=== PATIENT | female | born 2000 | race Caucasian/White ===

== ENCOUNTER 2021-09-01 22:29 | Emergency (ER) | payer OTHER, SELFPAY ==
--- NOTE | ~2021-09-01 | CT_ITS ---
EXAMINATION: CT abdomen pelvis w con DATE: 09/02/2021 00:36 INDICATION: Nausea. Low abdominal pain. TECHNIQUE: Computed tomography (CT) of the abdomen and pelvis was performed with 100 mL Omnipaque 350 intravenous contrast. Automated exposure control and iterative reconstruction technique were employe d. The dose-length product was 967.43 mGy-cm. COMPARISON: None. FINDINGS: The visualized portions of the lung bases demonstrate minimal atelectasis. No pleural effus ion. The heart size is normal. No pericardial effusion. The liver, gallbladder, spleen, pancreas, adr enal glands, and kidneys are normal. There are no dilated loops of bowel. The appendix is normal. The re are no pathologically enlarged lymph nodes. There is no free intraperitoneal fluid. The bones are unremarkable. IMPRESSION: 1. No etiology for the patient's symptoms. Reviewed, dictated and finalized at location A.
[2021-09-01 22:33] VITALS: BP 137/71; PULSE 81; RESP 18; TEMP 36.6; O2SAT 100
[2021-09-01 23:11] VITALS: BP 127/60; PULSE 77; RESP 16; O2SAT 100
[2021-09-01 23:22] LABS: Glucose Point of Care 132 mg/dl (65-105)
--- NOTE | 2021-09-01 23:48 | ED.FEMALEGU ---
HPI - Female Genitourinary General Chief complaint: STAFF RADIOGRAPHER <Gilda Saini PA-C - Last Filed: 09/02/21 02:03> Stated complaint: Dropping sensation in abdomen <Gilda Saini PA-C - Last Filed: 09/02/21 02:03> Time Seen by Provider: 09/01/21 22:56 <Gilda Saini PA-C - Last Filed: 09/02/21 02:03> Source: patient <ASA Dale Last Filed: 09/02/21 02:03> Mode of arrival: ambulatory <Gilda Saini PA-C - Last Filed: 09/02/21 02:03> Limitations: no limitations <ASA Dale Last Filed: 09/02/21 02:03> History of Present Illness HPI Narrative: This is a 21 year old female that presents to the ER for abnormal lower abdominal discomfort. Started tonight. Reports feeling like something has dropped in her pelvis. She was concerned she may be having problems with prolapse. No known history of this. She has had one previous vaginal . This was about 5 months ago. Reports nausea. Denies fever, vomiting or diarrhea. <Gilda Saini PA-C - Last Filed: 09/02/21 02:03> Related Data Allergies/Adverse reactions: Allergies Allergy/AdvReac Type Severity Reaction Status Date / Time No Known Allergies Allergy Verified 09/01/21 23:13 <Gilda Saini PA-C - Last Filed: 09/02/21 02:03> Review of Systems Review of Systems: CONSTITUTIONAL: Denies fever GASTROINTESTINAL: Reports abdominal pain, nausea. Denies vomiting, or diarrhea. GENITOURINARY: Denies dysuria <Gilda Saini PA-C - Last Filed: 09/02/21 02:03> All systems reviewed & are unremarkable except as noted in HPI and below <Gilda Saini PA-C - Last Filed: 09/02/21 02:03> [facility] Past Medical History Medical History: Medical History (Updated 09/02/21 @ 01:59 by Gilda Saini PA-C) No active medical problems <Gilda Saini PA-C - Last Filed: 09/02/21 02:03> Social History Social History: Social History (Updated 09/02/21 @ 01:05 by Gilda Saini PA-C) Substance use: never <Gilda Saini PA-C - Last Filed: 09/02/21 02:03> Exam Narrative: GENERAL: Well-appearing, well-nourished, and in no acute distress. HEAD: Normocephalic, atraumatic. EYES: EOMI. CHEST: Clear to auscultation. No respiratory distress. No wheezes rales or rhonchi HEART: Regular rate and rhythm. No murmur heard. Normal peripheral pulses. ABDOMEN: Soft, nontender, nondistended, normal active bowel sounds. EXTREMITIES: Normal range of motion. No edema. SKIN: Warm, dry, no rash. NEURO: No focal deficits. Alert and oriented x3. PSYCH: Normal mood and affect PELVIC: Normal external genitalia. Normal appearing cervix. No abnormal discharge or lesions noted. No evidence of prolapse <Gilda Saini PA-C - Last Filed: 09/02/21 02:03> Course Vital Signs Vital signs: Vital Signs Temperature 97.9 F 09/01/21 22:33 Pulse Rate 81 09/01/21 22:33 Respiratory Rate 18 09/01/21 22:33 Blood Pressure 137/71 09/01/21 22:33 Pulse Oximetry 100 09/01/21 22:33 Temperature 97.9 F 09/01/21 22:33 Pulse Rate 100 09/02/21 02:15 Respiratory Rate 14 09/02/21 02:15 Blood Pressure 125/68 09/02/21 02:15 Pulse Oximetry 100 09/02/21 02:15 <Gilda Saini PA-C - Last Filed: 09/02/21 02:03> MDM - Female Genitourinary MDM Narrative Medical decision making narrative: Patient presents to the emergency department for lower abdominal discomfort and nausea. She is afebrile and nontoxic-appearing. Her vitals are stable. CBC and metabolic panel without concerning findings. UA without evidence of infection. Bedside test is negative. CT scan of the abdomen and pelvis shows nonspecific inflammation of the small bowel and colon. Patient and family updated on case findings. She was hydrated and given antiemetics with relief. Will be started on oral antibiotics and instructed to follow-up with primary doctor. She was given warnings to return to the ER <Gilda Saini P
[2021-09-02 00:13] LABS: Alanine Aminotransferase 24 U/L (4-35); Albumin Level 4.3 g/dL (3.5-5.1); Alkaline Phosphatase 84 U/L (38-126); Anion Gap 8 mmol/L (8-16); Aspartate Amino Transferase 30 U/L (14-36); Bilirubin,Total 0.4 mg/dL (0.2-1.3); Blood Urea Nitrogen 17 mg/dL (7-17); Carbon Dioxide 26 mmol/L (22-30); Chloride 107 mmol/L (98-107); Estimated CRCL calculation 119 ml/min; Estimated Glomerular Filt Rate > 60; Glucose 128 mg/dL (65-110); Lipase 83 U/L (23-300); Potassium 3.5 mmol/L (3.4-5.0); Sodium 141 mmol/L (137-145)
[2021-09-02 00:14] LABS: Basophils Percent Auto 0.4 % (0.2-1.2); Eosinophils Absolute Auto 0.1 K/mm3 (0-0.3); Eosinophils Percent Auto 1.9 % (0-4.4); Hematocrit 37.1 % (37.0-47.0); Immature Granulocyte Absolute 0.01 K/mm3 (0.00-0.031); Immature Granulocyte Percent A 0.1 % (0-0.5); Lymphocytes Absolute Auto 1.99 K/mm3 (0.9-3.2); Lymphocytes Percent Auto 29.7 % (18.3-44.2); Mean Corpuscular HGB Conc 32.3 g/dl (32-36); Mean Corpuscular Hemoglobin 28.4 pg (26-34); Mean Corpuscular Volume 87.9 fl (80-100); Mean Platelet Volume 10.3 fl (7.4-10.4); Monocytes Absolute Auto 0.6 K/mm3 (0.1-0.6); Monocytes Percent Auto 8.3 % (2.6-8.5); Neutrophils Percent Auto 59.6 % (45.5-73.1); Platelet Count Result 317 k/mm3 (150-375); Red Blood Count 4.22 M/mm3 (4.2-5.4); White Blood Count 6.7 K/mm3 (4.5-10.0)
[2021-09-02 00:19] LABS: Add Urine Microscopic? YES; Appearance Urine Clear (Clear); Bacteria Urine Trace /hpf; Bilirubin Urine Negative (Negative); Blood Urine 3+ (Negative); Color Urine Straw (Yellow); Glucose Urine UA Negative (Negative); Ketones Urine Negative (Negative); Leukocyte Esterase Ur Trace LEU/UL (Negative); Nitrate Urine Negative (Negative); Protein Urine Negative (Negative); Squamous Epithelial Cell Urine Occasional /hpf (Few); Urobilinogen Urine Negative mg/dL (<2.0); WBC Urine 0-3 /hpf
[2021-09-02 00:20] LABS: Specific Grav Ur 1.004 (1.001-1.035)
[2021-09-02] MEDS: ONDANSETRON INJ 4 MG/2 ML VIAL IV PUSH (00:33)
[2021-09-02 01:00] VITALS: BP 144/77; PULSE 73; RESP 14; O2SAT 100
[2021-09-02] MEDS: diphenhydrAMINE HCl INJ 50 MG/ML VIAL 25 MG IV PUSH (01:30)
[2021-09-02] MEDS: METOCLOPRAMIDE HCL INJ 10 MG/2 ML VIAL IV PUSH (01:32)
[2021-09-02 02:15] VITALS: BP 125/68; PULSE 100; RESP 14; O2SAT 100
== END 2021-09-02 02:15 | disposition home or self-care (01) ==
PROVIDERS: Physician Assistant; Emergency Provider Emergency Medicine
DX: K52.9 Noninfective gastroenteritis and colitis, unspecified (principal)
CPT/HCPCS: 36415; 74177; 80053; 81001; 81025; 82948; 83690; 85025; 96365; 96375; 99284; J0131; J1200; J2405; J2765; Q9967

== ENCOUNTER 2024-06-10 10:01 | Outpatient (CLI) | payer OTHER, SELFPAY ==
--- NOTE | ~2024-06-10 | MR_ITS ---
EXAMINATION: MR ankle RT wo con DATE: 06/10/2024 10:46 INDICATION: Osteochondral defect of right ankle. Right ankle pain. TECHNIQUE: Magnetic resonance imaging (MRI) of the right ankle was performed without intravenous cont rast. Sequences included sagittal PD-weighted FS FSE, sagittal PD-weighted FSE, coronal PD-weighted F S FSE, coronal PD-weighted FSE, axial PD-weighted FS FSE, and axial PD-weighted FSE. COMPARISON: None. FINDINGS: Medial ankle ligaments: The deep and superficial components of the deltoid ligament are normal. Lateral ankle ligaments: The anterior and posterior talofibular ligaments, calcaneofibular ligament, and posterior tibiofibula r ligament are normal. There are changes of prior sprain of anterior tibiofibular ligament characteri zed by increased signal intensity. Tendons: The peroneal tendons and anterior and medial ankle tendons are normal. There is mild Achilles tendino lauri. Plantar fascia: Normal. Bones/other: Alignment is normal. No fracture. The talar dome is normal. Fluid: There is a small talonavicular joint effusion. There is edema in sinus tarsi. IMPRESSION: 1. Normal talar dome. Reviewed, dictated and finalized at location A. [employer] [employer] IMPRESSION: 1. Normal talar dome.
== END 2024-06-10 10:02 | disposition home or self-care (01) ==
LOC: MICIMG 10:04
DX: M25.571 Pain in right ankle and joints of right foot (principal)
CPT/HCPCS: 73721